=== PATIENT | male | born 1965 | race Caucasian/White ===

== ENCOUNTER 2017-09-09 09:25 | Outpatient (CLI) | payer MEDICARE | END 2017-09-09 09:26 | disposition home or self-care (01) | LOC: BICRAD 09:25 | PROVIDERS: ATTEND Anesthesiology Pain Medicine | DX: M47.894 Other spondylosis, thoracic region (principal) | CPT/HCPCS: 72070 ==

== ENCOUNTER 2020-03-20 13:00 | Outpatient (CLI) | payer MEDICARE, OTHER ==
--- NOTE | 2020-03-20 14:22 | MRI ---
MRI LUMBAR SPINE 03/20/2020: PROVIDED CLINICAL HISTORY: Radiculopathy. FINDINGS: Five lumbar vertebral bodies are assumed. Lumbar alignment appears normal. Vertebral body heights a re preserved. The conus medullaris is normal in signal and terminates at an appropriate level. Part ially visualized T2 hyperintensities involving the kidneys statistically reflect cysts but are incomp letely characterized on the basis of this study. At L1-2, there is no evidence for significant central canal or foraminal narrowing. At L2-3, there is no significant central canal or foraminal narrowing apparent. At L3-4, there is disk desiccation with preservation of disk space height. Mild bilateral facet arth ritis and a mild broad disk bulge. No significant central canal or foraminal narrowing apparent. At L4-5, there is disk desiccation and mild loss of disk space height. There is a broad-based disk b ulge and bilateral facet arthritis. There is no significant central canal stenosis apparent. There is mild bilateral foraminal narrowing. At L5-S1, there is a broad-based disk bulge and accompanying osteophyte. There is bilateral facet ar thritis. There is mild to moderate left foraminal narrowing and mild to moderate right foraminal trixie rowing. IMPRESSION: Lower lumbar disk and facet degenerative changes producing areas of foraminal narrowing as described. POS: [facility]
== END 2020-03-20 13:01 | disposition home or self-care (01) ==
LOC: BICMRI 13:00
PROVIDERS: ATTEND Anesthesiology Pain Medicine
DX: M51.16 Intervertebral disc disorders with radiculopathy, lumbar region (principal); M47.26 Other spondylosis with radiculopathy, lumbar region; M47.27 Other spondylosis with radiculopathy, lumbosacral region; M48.061 Spinal stenosis, lumbar region without neurogenic claudication; M48.07 Spinal stenosis, lumbosacral region
CPT/HCPCS: 72148

== ENCOUNTER 2021-05-28 08:42 | Outpatient (CLI) | payer MEDICARE, MEDICAID | END 2021-05-28 08:43 | disposition home or self-care (01) | LOC: BICMRI 08:42 | PROVIDERS: ATTEND Anesthesiology Pain Medicine | DX: M48.04 Spinal stenosis, thoracic region (principal); M48.02 Spinal stenosis, cervical region; M51.34 Other intervertebral disc degeneration, thoracic region; M40.204 Unspecified kyphosis, thoracic region; M51.24 Other intervertebral disc displacement, thoracic region; M47.812 Spondylosis without myelopathy or radiculopathy, cervical region | CPT/HCPCS: 72141; 72146 ==

== ENCOUNTER 2022-04-18 04:14 | Inpatient (IN) | payer OTHER ==
[2022-04-18] MEDS ORDERED: Ondansetron PF 4 MG/2 ML Vial IVP PRN (04:52)
[2022-04-18 05:05] VITALS: BMI 35.9
[2022-04-18] MEDS ORDERED: Morphine 2 MG/ML VIAL SLOW IVP SCH ×2 (05:15→13:41)
[2022-04-18 05:35] LABS: Anion Gap 14 mmol/L (10-20); BUN (Urea Nitrogen) 25 mg/dL (8.4-25.7); Calc. Creatinine Clearance 130 mL/min (70-130); Calcium 9.3 mg/dL (7.8-10.44); Carbon Dioxide 26 mmol/L (22-29); Chloride 105 mmol/L (98-107); Estimated GFR 81; Glucose 103 mg/dL (70-105); Potassium 3.8 mmol/L (3.5-5.1); Sodium 141 mmol/L (136-145)
[2022-04-18 05:38] LABS: Band 10 % (5-11); Eosinophils 1 % (0-10); Hemoglobin 17.1 g/dL (14.0-18.0); Lymphocytes 16 % (21-51); MDiff Complete? YES; Mean Corpuscular HGB CONC 33.7 g/dL (32.0-36.0); Mean Corpuscular Hemoglobin 31.7 pg (27.0-31.0); Mean Platelet Volume 10.1 fL (7.4-10.4); Monocytes 20 % (0-10); Neutrophil 50 % (42-75); Platelet Count 159 thou/uL (130-400); RBC Distribution Width 12.8 % (11.5-14.5); Reactive Lymphocytes 2 % (0-10); White Blood Cell (WBC) Count 6.2 thou/uL (4.8-10.8)
[2022-04-18] MEDS ORDERED: Ketorolac Tromethamine 30 MG/ML VIAL IVP SCH (06:00)
[2022-04-18] MEDS: Sodium Chloride 0.9% 1,000 ML IV SCH ×3 (06:15→18:00)
[2022-04-18 06:45] LABS: SARS-CoV-2 NAA Rapid Test Not Detected (NotDetected)
[2022-04-18] MEDS ORDERED: Chloraseptic Spray 180 ml Bottle PO PRN (09:20)
[2022-04-18] MEDS ORDERED: Lorazepam 2 MG/ML VIAL SLOW IVP PRN (09:22)
[2022-04-18] MEDS ORDERED: Electrolyte Replacement Protocol 1 EACH FS SCH (09:30)
[2022-04-18] MEDS ORDERED: Midazolam HCl 2 mg/2 ml Vial SLOW IVP PRN (09:45)
[2022-04-18] MEDS: Ketorolac Tromethamine 30 MG/ML VIAL IVP SCH ×2 (13:34→17:59)
[2022-04-18] MEDS ORDERED: Morphine 2 MG/ML VIAL SLOW IVP ONE (13:41)
[2022-04-18] MEDS: Lorazepam 2 MG/ML VIAL SLOW IVP PRN ×2 (14:13→22:18)
[2022-04-18] MEDS: Pantoprazole 40 MG VIAL IVP SCH (21:59)
[2022-04-18] MEDS: Acetaminophen 325 MG TAB PO PRN (22:08)
[2022-04-19] MEDS: Ketorolac Tromethamine 30 MG/ML VIAL IVP SCH ×4 (00:22→17:30)
[2022-04-19] MEDS ORDERED: Morphine 2 MG/ML VIAL SLOW IVP SCH (02:00)
[2022-04-19] MEDS: Sodium Chloride 0.9% 1,000 ML IV SCH ×2 (05:43→13:27)
[2022-04-19 06:11] LABS: #Eosinphils 0.1 thou/uL (0.0-0.7); #Monocytes 0.6 thou/uL (0.11-0.59); #Neutrophils 3.6 thou/uL (1.40-6.50); %Basophils 0.1 % (0.0-1.0); %Eosinophils 1.7 % (0.0-10.0); %Lymphocytes 18.9 % (21.0-51.0); %Monocytes 11.1 % (0.0-10.0); %Neutrophils 68.1 % (42.0-75.0); Hemoglobin 14.8 g/dL (14.0-18.0); Mean Corpuscular HGB CONC 32.5 g/dL (32.0-36.0); Mean Corpuscular Hemoglobin 30.6 pg (27.0-31.0); Mean Corpuscular Volume 94.1 fL (78.0-98.0); Mean Platelet Volume 9.5 fL (7.4-10.4); Platelet Count 146 thou/uL (130-400); Red Blood Cell (RBC) Count 4.85 mill/uL (4.70-6.10); White Blood Cell (WBC) Count 5.2 thou/uL (4.8-10.8)
[2022-04-19 06:29] LABS: Anion Gap 15 mmol/L (10-20); BUN (Urea Nitrogen) 30 mg/dL (8.4-25.7); Calc. Creatinine Clearance 179 mL/min (70-130); Calcium 8.4 mg/dL (7.8-10.44); Carbon Dioxide 24 mmol/L (22-29); Chloride 109 mmol/L (98-107); Estimated GFR 105; Glucose 96 mg/dL (70-105); Potassium 3.6 mmol/L (3.5-5.1); Sodium 144 mmol/L (136-145)
[2022-04-19] MEDS: Acetaminophen 325 MG TAB PO PRN (07:49)
[2022-04-19] MEDS: Pantoprazole 40 MG VIAL IVP SCH (07:50)
[2022-04-19] MEDS ORDERED: MD-Gastroview 120 ML BOT ONE (16:20)
[2022-04-19 20:12] VITALS: BP 150/82; TEMP 97.9
== END 2022-04-19 20:12 | disposition home or self-care (01) | DRG 390 ==
LOC: SJJU 04:26
PROVIDERS: ADMIT Internal Medicine; ATTEND Internal Medicine
PROC: 0D9670Z Drainage of Stomach with Drainage Device, Via Natural or Artificial Opening (ICD-10-PCS; principal; 2022-04-18)
DX: K56.600 Partial intestinal obstruction, unspecified as to cause (principal); E03.9 Hypothyroidism, unspecified; F41.9 Anxiety disorder, unspecified; K86.89 Other specified diseases of pancreas; G89.4 Chronic pain syndrome; Z20.822 Contact with and (suspected) exposure to COVID-19; Z60.2 Problems related to living alone; Z88.1 Allergy status to other antibiotic agents; Z88.8 Allergy status to other drugs, medicaments and biological substances; Z79.890 Hormone replacement therapy; Z79.899 Other long term (current) drug therapy; Z98.890 Other specified postprocedural states; Z90.49 Acquired absence of other specified parts of digestive tract; Z88.6 Allergy status to analgesic agent; Z79.891 Long term (current) use of opiate analgesic
CPT/HCPCS: 36415; 74250; 80048; 85025; C9113; J1885; J2060; J2270; J7050; Q9963; U0002

== ENCOUNTER 2022-10-28 17:30 | Outpatient (CLI) | payer OTHER, MEDICAID | END 2022-10-28 17:31 | LOC: SLEEPLAB 17:30 | PROVIDERS: ATTEND Internal Medicine | DX: G47.33 Obstructive sleep apnea (adult) (pediatric) (principal); R53.83 Other fatigue; F41.9 Anxiety disorder, unspecified; R06.83 Snoring; R51.9 Headache, unspecified; G47.00 Insomnia, unspecified; E66.9 Obesity, unspecified; Z68.37 Body mass index [BMI] 37.0-37.9, adult | CPT/HCPCS: 95800 ==

== ENCOUNTER 2023-01-13 17:30 | Outpatient (CLI) | payer OTHER, MEDICAID | END 2023-01-13 17:31 | disposition home or self-care (01) | LOC: SLEEPLAB 17:30 | PROVIDERS: ATTEND Internal Medicine | DX: G47.33 Obstructive sleep apnea (adult) (pediatric) (principal); R53.83 Other fatigue; E66.9 Obesity, unspecified; F41.9 Anxiety disorder, unspecified; Z68.37 Body mass index [BMI] 37.0-37.9, adult | CPT/HCPCS: 95800 ==

== ENCOUNTER 2023-11-17 11:57 | Outpatient (CLI) | payer OTHER | END 2023-11-17 11:58 | disposition home or self-care (01) | LOC: MRI 11:57 | PROVIDERS: ATTEND Internal Medicine | DX: M54.14 Radiculopathy, thoracic region (principal); M50.11 Cervical disc disorder with radiculopathy, high cervical region; M50.121 Cervical disc disorder at C4-C5 level with radiculopathy; M50.122 Cervical disc disorder at C5-C6 level with radiculopathy; M48.02 Spinal stenosis, cervical region; M40.204 Unspecified kyphosis, thoracic region; M25.78 Osteophyte, vertebrae; M43.9 Deforming dorsopathy, unspecified | CPT/HCPCS: 72141; 72146 ==